=== PATIENT | male | born 1990 | race Caucasian/White ===

== ENCOUNTER 2016-12-09 22:15 | Inpatient (IN) | payer BC, OTHER ==
--- NOTE | 2016-12-09 23:07 | ED ---
Seble Martell Thomas, scribed for Scottie Conrad MD on 12/09/16 at 2254 . Psychiatric Complaint - HPI Summary HPI Summary: The pt is a 26 y/o M presenting to the ED c/o racing thoughts that began a week ago. He sees someone for this and other unspecified mental health issues. He presented to the ED after his mother requested that he do so due to his racing thoughts. - History Of Current Complaint Chief Complaint: EDMentalHealth Time Seen by Provider: 12/09/16 22:51 Hx Obtained From: Patient Onset/Duration: Lasting Weeks - 1 week, Still Present - Allergies/Home Medications Allergies/Adverse Reactions: Allergies Allergy/AdvReac Type Severity Reaction Status Date / Time No Known Allergies Allergy Verified 12/10/16 16:21 Home Medications: Home Medications Lorazepam [Ativan 1 MG TAB] 1 mg PO BID 12/10/16 [History Confirmed 12/10/16] PMH/Surg Hx/FS Hx/Imm Hx Previously Healthy: No Respiratory History: Denies: Hx Chronic Obstructive Pulmonary Disease (COPD) Opthamlomology History: Denies: Hx Legally Blind Infectious Disease History: No Infectious Disease History: Denies: Traveled Outside the [place] in Last 30 Days - Family History Known Family History: Positive: Other - FHx not obtained because pt was sleeping at time of re-evaluation - Social History Occupation: Student - formerly a student Alcohol Use: Occasionally Review of Systems Constitutional: Negative Negative: Fever Eyes: Negative ENT: Negative Cardiovascular: Negative Respiratory: Negative Gastrointestinal: Negative Genitourinary: Negative Musculoskeletal: Negative Skin: Negative Neurological: Negative Psychological: Other - POS: racing thoughts All Other Systems Reviewed And Are Negative: Yes Physical Exam Triage Information Reviewed: Yes Vital Signs On Initial Exam: Initial Vitals Temp Pulse Resp BP Pulse Ox 98.5 F 94 16 130/87 95 12/09/16 22:35 12/09/16 22:35 12/09/16 22:35 12/09/16 22:35 12/09/16 22:35 Vital Signs Reviewed: Yes Appearance: Positive: Well-Appearing, No Pain Distress Skin: Positive: Warm Head/Face: Positive: Normal Head/Face Inspection Eyes: Positive: FAIZA ENT: Positive: Hearing grossly normal Neck: Positive: Supple Respiratory/Lung Sounds: Positive: Clear to Auscultation, Breath Sounds Present Cardiovascular: Positive: RRR Abdomen Description: Positive: Nontender, Soft Bowel Sounds: Positive: Present Musculoskeletal: Positive: Strength/ROM Intact Neurological: Positive: Alert, Oriented to Person Place, Time Psychiatric: Positive: Affect/Mood Appropriate, Anxious Diagnostics - Vital Signs Vital Signs Temp Pulse Resp BP Pulse Ox 12/09/16 22:35 98.5 F 94 16 130/87 95 - Laboratory Result Diagrams: 12/09/16 23:51 12/09/16 23:51 Lab Statement: Any lab studies that have been ordered have been reviewed, and results considered in the medical decision making process. Course/Dx - Differential Dx/Clinical Impression Provider Diagnosis: Delusions, Psychosis - Physician Notifications Instructed by Provider To: Admit As Inpatient Discharge - Discharge Plan Condition: Fair Disposition: ADMITTED TO [facility] The documentation as recorded by the Seble munoz Thomas accurately reflects the service I personally performed and the decisions made by , Scottie Conrad MD.
[2016-12-09 23:18] LABS: Urine Bilirubin Negative (Negative); Urine Glucose Negative (Negative); Urine Nitrite Negative (Negative)
[2016-12-09 23:28] LABS: Benzodiazepine Urine Screen None Detected (None Detect)
[2016-12-10 00:05] LABS: Hematocrit 45 % (42-52); Hemoglobin 15.7 g/dl (14.0-18.0); Mean Corpuscular HGB Conc 35 g/dl (31-36); Mean Corpuscular Hemoglobin 31 pg (27-31); Mean Corpuscular Volume 88 fL (80-94); Mean Platelet Volume 8 um3 (7.4-10.4); Red Cell Distribution Width 13 % (10.5-15); White Blood Count 6.8 10^3/ul (3.5-10.8)
[2016-12-10 00:20] LABS: ALT 24 U/L (7-52); AST 23 U/L (13-39); Albumin 4.5 g/dL (3.2-5.2); Alkaline Phosphatase 48 U/L (34-104); Anion Gap 9 mmol/L (2-11); BUN/Creatinine Ratio 17.1 (8-20); Blood Urea Nitrogen 19 mg/dL (6-24); CO2 Carbon Dioxide 24 mmol/L (22-32); Calcium 9.6 mg/dL (8.6-10.3); Chloride 103 mmol/L (101-111); EGFR African American 102.2 (>60); EGFR Non-African American 79.5 (>60); Globulin 2.9 g/dL (2-4); Glucose 83 mg/dL (70-100); Potassium 3.6 mmol/L (3.5-5.0); Sodium 136 mmol/L (133-145); Total Protein 7.4 g/dL (6.4-8.9)
[2016-12-10 00:28] LABS: Acetaminophen < 15 mcg/mL; Alcohol 17 mg/dL (<10); Salicylate < 2.50 mg/dL (<30)
[2016-12-10 00:39] LABS: TSH (Thyroid Stimulating Horm) 0.91 mcIU/mL (0.34-5.60)
[2016-12-10] MEDS ORDERED: Acetaminophen TAB* 325 MG PO PRN (10:59)
[2016-12-10] MEDS ORDERED: Al Hydrox/Mg Hydrox/Simet LIQ* 30 ML UDC PO PRN (10:59)
[2016-12-10] MEDS ORDERED: LORazepam TAB(*) 1 MG PO PRN (11:01)
[2016-12-10] MEDS ORDERED: Nicotine GUM* 2 MG PO PRN (13:23)
[2016-12-10] MEDS ORDERED: Nicotine Inhaler* 10 MG AMP INH PRN (13:23)
[2016-12-11] MEDS ORDERED: LORazepam TAB(*) 1 MG PO PRN (11:17)
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
--- NOTE | 2016-12-11 14:45 | RAD ---
Indication: Psychosis. CT of the brain was performed without IV contrast. Ventricular structures are midline. No shift is noted. The extra-axial spaces are unremarkable. There is no evidence of intracranial mass or hemorrhage. No other high or low density lesions are identified. Mastoid air cells and paranasal sinuses are otherwise unremarkable. IMPRESSION: No intracranial mass or hemorrhage is noted.
[2016-12-11] MEDS: clonazePAM TAB(*) 0.5 MG PO PRN (17:41)
[2016-12-11] MEDS: ARIPiprazole TAB* 5 MG PO SCH (20:57)
[2016-12-12 08:57] LABS: HDL Cholesterol 41.7 mg/dL
[2016-12-12 10:26] LABS: Rapid HIV INT CONT QC Line Present; Rapid HIV Kit Lot# F336002
--- NOTE | 2016-12-12 16:27 | PN ---
Subjective - Subjective Service Type: [id number] Hosp care 15 min low complexity Subjective: Patient sleeping on my approach. He reports not feeling up to being in the milieu or going to groups just yet. He does report noticeable decrease in anxiety. Patient is med compliant and denies med s/e's. Patient reports good sleep and appetite. Patient is linear on interview, but is not spontaneous in speech. When asked if he still is thinking about the future events he saw in 09/2015 or if he's experienced any other episodes of mohit vu, patient shakes his head, but does not answer. He expresses no delusional thought. He denies SI/HI and AH/VH. Objective - Appearance Appearance: Well Developed/Nourished Dysmorphic Features: Yes Hygiene: Normal Grooming: Well Kept - Behavior Psychomotor Activities: Normal Exhibits Abnormal Movement: Yes - Attitude and Relatedness Attitude and Relatedness: Cooperative Eye Contact: Fair - Speech Quality: Unpressured Latencies: Normal Quantity: Terse - Mood Patient's Decription of Mood: "Okay" - Affect Observed Affect: Non-labile Affect Consistent with: Dysphoria - Thought Process Patient's Thought Process: Coherent Thought Content: No Passive Wish, No Suicidal Planning, No Homicidal Ideation, No Paranoid Ideation - Sensorium Experiencing Hallucinations: No, Sensorium is Clear Type of Hallucinations: Visual: No, Auditory: No, Command: No - Level of Consciousness Level of Consciousness: Lethargic Orientation: Yes Intact, Yes Orientated to Time, Yes Orientated to Place, Yes Orientated to Person - Impulse Control Impulse Control: Poor - Insight and Judgement Insight and Judgement: Poor - Group Participation Particating in Group Activities: No - Medication Management Medication Management Adherence: Yes Assessment - Assessment Merits Inpatient Hospitalization: For Immediate Safety, For Stabilization Inpatient DSM-IV Dx: 1. Unspecified psychotic disorder (1st break). 2. R/O Bipolar 2 d/o, MRE mixed with PFs. 3. R/O Delusional d/o. 4. R/O Temporal lobe epilepsy Plan - Plan Treatment Plan: Name: MITCHEL CERON Birthdate: 1990 [id number] PLAN: ------ 1. Continue admission to [facility] for safety and symptom mx. 2. D/C Ativan 3. Patient agrees to start Klonopin 0.5mg po BID for anxiety. 4. Continue Abilify 5mg po qhs for mood stabilization/psychosis. 5. MMPI evaluated. 6. First break work-up: CT head w/o contrast - wnl. ESR-wnl. HIV-neg. RPR and EEG-PENDING. 7. Continue compiling collateral information from family, PCP, and [facility] in [place] on [address] 8. Patient to participate in milieu activities and groups. Continued Medication Management: Start Medication Medications: Current Medications Acetaminophen (Tylenol Tab*) 650 mg PO Q4H PRN PRN Reason: for pain; or Temp >101 F Al Hydrox/Mg Hydrox/Simethicone (Maalox Plus*) 30 ml PO Q4H PRN PRN Reason: INDIGESTION Aripiprazole (Abilify Tab*) 5 mg PO BEDTIME NANCY Last Admin: 12/11/16 20:57 Dose: 5 mg Clonazepam (Klonopin Tab(*)) 0.5 mg PO BID PRN PRN Reason: Anxiety / Agitation / Insomnia Last Admin: 12/11/16 17:41 Dose: 0.5 mg Nicotine (Nicotine Inhaler*) 10 mg INH Q2H PRN PRN Reason: CRAVING Nicotine Polacrilex (Nicotine Gum*) 2 mg PO Q2H PRN PRN Reason: CRAVING - Discharge Plan Discharge Plan: Outpatient Follow Up Outpatient Program: Private Clinician(s)
--- NOTE | 2016-12-12 16:54 | CONS ---
PSYCHOLOGICAL REPORT: DATE OF CONSULT: 12/12/16 REASON FOR REFERRAL: Carl was referred for psychological testing with concerns regarding psychotic thought processes, perhaps consistent with bipolar condition. Concerns also revolve around possible depressive affect as well as anxiety. TEST ADMINISTERED: Carl completed the [place] Multiphasic Personality Inventory-2 (MMPI-2). He was given feedback in individual conversation regarding results. 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 Apparently, Carl did grow up with some members of the band, but the mother does not believe that he had written songs for them. Carl impressed as responding to some internal stimuli in discussion of test results. He seemed to be somewhat defended in attempts to interview, describing maintaining good sleep hygiene, but that he often uses alcohol and at times a benzodiazepine to induce sleep. When told that his depression scale was not elevated on testing, he turned to knock on wood and then seemed to be responding to some sort of internal stimuli that he was unwilling to discuss. Carl presented with good hygiene and fair eye contact. He did not initiate any clinical discussion or pursue questions regarding test results, and expressed relief when this senior technical writer disengaged with him. He has to date been rather reclusive to his room, not engaging in group programing so far. IMPRESSIONS AND RECOMMENDATIONS: Carl provides a valid protocol on this administration of the MMPI-2 and elevates both the psychopathic deviate and hypomania scales to a T-score of approximately 70. His test results impressed as being consistent with bipolar I disorder, which seems to be consistent with at least his mother's description of rather bizarre behaviors and believes of late. This appears to be a first break psychotic experience as Carl does not appear to have any prior inpatient treatment or mental health supports. Apparently, there is some history of Carl experiencing anxiety, but he does not discuss that presently. Concerns are that his account of recent history is not altogether forthcoming with likely difficulties with sleep hygiene. Information collected from his mother supports difficulties with sleep and encroaching behaviors which are out of character for him and increasingly bizarre. Diagnostic impression supports psychosis with likely bipolar I disorder either being present or in a prodromal phase. [id number]/[facility] #: [id number] BESSY
[2016-12-12] MEDS: Cetirizine* 10 MG TAB PO SCH (19:28)
[2016-12-12] MEDS: Fluticasone NASAL SPRAY 50MCG* 16 gm SPRAY BTL BOTH NARES SCH (19:28)
[2016-12-12] MEDS: ARIPiprazole TAB* 5 MG PO SCH (20:22)
--- NOTE | 2016-12-13 06:33 | EEG ---
ELECTROENCEPHALOGRAPHY: DATE OF STUDY: DATE OF DICTATION: 12/12/16 - ROOM #214 PATIENT OF: Dr. Moore. CLINICAL PROBLEM: This is a 26-year-old man being evaluated for a psychotic break to evaluate for seizures. MEDICATIONS: Include: 1. Abilify. 2. Maalox. 3. Klonopin. 4. Nicotine gum. 5. Ativan. 6. Marijuana. REPORT: With the patient awake, background cerebral activity consists of moderate amplitude posterior dominant 8 Hz rhythm, which attenuates with eye opening and reappears with eye closure. At times, there is muscle movement artifact. No clear cut epileptiform potentials, focal abnormalities, major asymmetries of background is noted. The patient never falls asleep. CLINICAL IMPRESSION: This awake EEG is within normal limits. [id number]/[facility] #: [id number] MTDD
[2016-12-13] MEDS: Cetirizine* 10 MG TAB PO SCH (09:13)
[2016-12-13] MEDS: Fluticasone NASAL SPRAY 50MCG* 16 gm SPRAY BTL BOTH NARES SCH (09:13)
[2016-12-13 11:41] LABS: Syphilis Index < 0.1 Index
--- NOTE | 2016-12-13 11:43 | PN ---
MHU: Group Therapy Note - Service Type Service Type: [id number] Group Psychotherapy - Cognitive Behavioral Group Psychotherapy Note: Carl was attentive to discussion but did not spontaneously offer comment. His affect varied appropriately with discussion.
--- NOTE | 2016-12-13 12:05 | PN ---
Subjective - Subjective Service Type: [id number] Hosp care 15 min low complexity Subjective: Patient in the milieu on my approach, sitting alone. He did attend group this morning. Patient requests discharge at initiation of interview. Patient reports significant discomfort with being here. 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 Patient confronted with question to consider the validity of that statement. Patient then encouraged to consider if this is, in his opinion, based in reality maybe other thoughts that he feels are based in reality may also be far fetched. Patient reports he will stay the weekend. He is amenable to increase of Abilify dose. He denies SI/HI and AH/VH. He does report ongoing experiences of mohit vu which he feels he first saw in 09/2015. Patient informed of lab results including nml CT of head and nml EEG. Objective - Appearance Appearance: Thin Framed Dysmorphic Features: No Hygiene: Normal Grooming: Fairly Well Kept - Behavior Psychomotor Activities: Abnormal-Decreased Exhibits Abnormal Movement: Yes - Attitude and Relatedness Attitude and Relatedness: Cooperative Eye Contact: Poor - Speech Quality: Unpressured Latencies: Normal Quantity: Appropriate - Mood Patient's Decription of Mood: "Anxious" - Affect Observed Affect: Depressed Affect Consistent with: Dysphoria - Thought Process Patient's Thought Process: Coherent Thought Content: No Passive Wish, No Suicidal Planning, No Homicidal Ideation, No Paranoid Ideation - Sensorium Experiencing Hallucinations: No, Sensorium is Clear Type of Hallucinations: Visual: No, Auditory: No, Command: No - Level of Consciousness Level of Consciousness: Alert Orientation: Yes Intact, Yes Orientated to Time, Yes Orientated to Place, Yes Orientated to Person - Impulse Control Impulse Control: Intact - Insight and Judgement Insight and Judgement: Poor - Group Participation Particating in Group Activities: No - Medication Management Medication Management Adherence: Yes Assessment - Assessment Merits Inpatient Hospitalization: For Stabilization Inpatient DSM-IV Dx: 1. Unspecified psychotic disorder (1st break). 2. R/O Bipolar 2 d/o, MRE mixed with PFs. 3. R/O Delusional d/o. Plan - Plan Treatment Plan: Name: MITCHEL CERON Birthdate: 1990 [id number] PLAN: ------ 1. Continue admission to [facility] for safety and symptom mx. 2. D/C Ativan 3. Continue Klonopin 0.5mg po BID for anxiety. 4. Increase Abilify from 5mg to 10mg po qhs for mood stabilization/psychosis. 5. MMPI evaluated. 6. First break work-up: CT head w/o contrast - wnl. ESR-wnl. HIV-neg. RPR - neg. EEG - wnl. 7. Continue compiling collateral information from family, PCP, and [facility] in [place] on [address] 8. Patient to participate in milieu activities and groups. Medications: Current Medications Acetaminophen (Tylenol Tab*) 650 mg PO Q4H PRN PRN Reason: for pain; or Temp >101 F Al Hydrox/Mg Hydrox/Simethicone (Maalox Plus*) 30 ml PO Q4H PRN PRN Reason: INDIGESTION Aripiprazole (Abilify Tab*) 10 mg PO BEDTIME [facility] Cetirizine HCl (Zyrtec*) 10 mg PO DAILY [facility] Last Admin: 12/13/16 09:13 Dose: Not Given Clonazepam (Klonopin Tab(*)) 0.5 mg PO BID PRN PRN Reason: Anxiety / Agitation / Insomnia Last Admin: 12/11/16 17:41 Dose: 0.5 mg Fluticasone Propionate (Flonase Nasal [place] 50mcg*) 2 spray BOTH NARES DAILY [facility] Last Admin: 12/13/16 09:13 Dose: Not Given Nicotine (Nicotine Inhaler*) 10 mg INH Q2H PRN PRN Reason: CRAVING Nicotine Polacrilex (Nicotine Gum*) 2 mg PO Q2H PRN PRN Reason: CRAVING - Discharge Plan Discharge Plan: Outpatient Follow Up Outpatient Program: Counseling/Psych Services at [place]
[2016-12-13] MEDS: clonazePAM TAB(*) 0.5 MG PO PRN (12:47)
[2016-12-13] MEDS: ARIPiprazole TAB* 5 MG PO SCH (20:43)
[2016-12-14] MEDS: Cetirizine* 10 MG TAB PO SCH (09:49)
[2016-12-14] MEDS: Fluticasone NASAL SPRAY 50MCG* 16 gm SPRAY BTL BOTH NARES SCH (09:49)
[2016-12-14] MEDS: clonazePAM TAB(*) 0.5 MG PO PRN ×2 (13:09→22:02)
[2016-12-14] MEDS: ARIPiprazole TAB* 5 MG PO SCH (20:14)
[2016-12-15] MEDS: Cetirizine* 10 MG TAB PO SCH (09:01)
[2016-12-15] MEDS: Fluticasone NASAL SPRAY 50MCG* 16 gm SPRAY BTL BOTH NARES SCH (09:01)
[2016-12-15] MEDS: clonazePAM TAB(*) 0.5 MG PO PRN ×2 (11:02→18:04)
--- NOTE | 2016-12-15 12:02 | PN ---
Subjective - Subjective Service Type: 96327 Hosp care 15 min low complexity Subjective: The patient denies SI or HI. He appears to be tolerating his medication well and complains only of nasal congestion, requesting Mucinex. Staff reports that he has been cooperative with routines and milieu activities. Patient seems somewhat guarded and paranoid. Objective - Appearance Appearance: Well Developed/Nourished Dysmorphic Features: No Hygiene: Normal Grooming: Well Kept - Behavior Psychomotor Activities: Normal Exhibits Abnormal Movement: No - Attitude and Relatedness Attitude and Relatedness: Guarded Eye Contact: Fair - Speech Quality: Unpressured Latencies: Normal Quantity: Terse - Mood Patient's Decription of Mood: "Okay" - Affect Observed Affect: Tense Affect Consistent with: Euthymia - Thought Process Patient's Thought Process: Coherent Thought Content: Yes Paranoid Ideation, No Passive Wish, No Suicidal Planning, No Homicidal Ideation - Sensorium Experiencing Hallucinations: No, Sensorium is Clear Type of Hallucinations: Visual: No, Auditory: No, Command: No - Level of Consciousness Level of Consciousness: Alert Orientation: Yes Intact, Yes Orientated to Time, Yes Orientated to Place, Yes Orientated to Person - Impulse Control Impulse Control: Tenuous - Insight and Judgement Insight and Judgement: Poor - Group Participation Particating in Group Activities: Yes - Medication Management Medication Management Adherence: Yes Assessment - Assessment Merits Inpatient Hospitalization: For Immediate Safety, For Stabilization Inpatient DSM-IV Dx: 1. Unspecified psychotic disorder (1st break). 2. R/O Bipolar 2 d/o, MRE mixed with PFs. 3. R/O Delusional d/o. Clinical Impression: 26 y.o. single, white male with no prior documented history of psychiatric disorder arrived brought in by his mother for increasing paranoid and bizarre behavior. Plan - Plan Treatment Plan: Name: MITCHEL CERON Birthdate: 1990 [id number] Patient taking aripiprazole as prescribed. Remains paranoid. Mucinex prn for congestion. Continued Medication Management: Start Medication Medications: Current Medications Acetaminophen (Tylenol Tab*) 650 mg PO Q4H PRN PRN Reason: for pain; or Temp >101 F Al Hydrox/Mg Hydrox/Simethicone (Maalox Plus*) 30 ml PO Q4H PRN PRN Reason: INDIGESTION Aripiprazole (Abilify Tab*) 10 mg PO BEDTIME [facility] Last Admin: 12/14/16 20:14 Dose: 10 mg Cetirizine HCl (Zyrtec*) 10 mg PO DAILY [facility] Last Admin: 12/15/16 09:01 Dose: Not Given Clonazepam (Klonopin Tab(*)) 0.5 mg PO BID PRN PRN Reason: Anxiety / Agitation / Insomnia Last Admin: 12/15/16 11:02 Dose: 0.5 mg Fluticasone Propionate (Flonase Nasal [place] 50mcg*) 2 spray BOTH NARES DAILY [facility] Last Admin: 12/15/16 09:01 Dose: Not Given Guaifenesin (Mucinex*) 600 mg PO BID PRN PRN Reason: CONGESTION Nicotine (Nicotine Inhaler*) 10 mg INH Q2H PRN PRN Reason: CRAVING Nicotine Polacrilex (Nicotine Gum*) 2 mg PO Q2H PRN PRN Reason: CRAVING - Discharge Plan Discharge Plan: Inpatient Hospitalization
[2016-12-15] MEDS: guaiFENesin ER TAB 600 MG PO PRN (18:07)
[2016-12-15] MEDS: ARIPiprazole TAB* 5 MG PO SCH (20:03)
[2016-12-16 08:05] VITALS: BP 136/69
[2016-12-16] MEDS: Cetirizine* 10 MG TAB PO SCH (08:54)
[2016-12-16] MEDS: guaiFENesin ER TAB 600 MG PO PRN (08:54)
[2016-12-16] MEDS: Fluticasone NASAL SPRAY 50MCG* 16 gm SPRAY BTL BOTH NARES SCH (08:54)
[2016-12-16] MEDS: clonazePAM TAB(*) 0.5 MG PO PRN (12:59)
--- NOTE | 2016-12-16 13:56 | PN ---
[facility]: Group Therapy Note - Service Type Service Type: [id number] Group Psychotherapy - Cognitive Behavioral Group Therapy ( CBT):Patient attended CBT programming this morning and presented with flat affect that did not vary with discussion. Although responsive to direct prompts to respond to questions, patient did not engage in spontaneous conversation.
--- NOTE | 2016-12-16 15:36 | DS ---
Subjective - Subjective Service Types: [id number] Hosp DC Day Mgmt simple under 30 min Treatment Course & Assessment Inpatient DSM-IV Dx: 1. Unspecified psychotic disorder (1st break). 2. R/O Bipolar 2 d/o, MRE mixed with PFs. 3. R/O Delusional d/o. Discharge Planning - Discharge Planning Medications: Current Medications Acetaminophen (Tylenol Tab*) 650 mg PO Q4H PRN PRN Reason: for pain; or Temp >101 F Al Hydrox/Mg Hydrox/Simethicone (Maalox Plus*) 30 ml PO Q4H PRN PRN Reason: INDIGESTION Aripiprazole (Abilify Tab*) 10 mg PO BEDTIME [facility] Last Admin: 12/15/16 20:03 Dose: 10 mg Cetirizine HCl (Zyrtec*) 10 mg PO DAILY [facility] Last Admin: 12/16/16 08:54 Dose: Not Given Clonazepam (Klonopin Tab(*)) 0.5 mg PO BID PRN PRN Reason: Anxiety / Agitation / Insomnia Last Admin: 12/16/16 12:59 Dose: 0.5 mg Fluticasone Propionate (Flonase Nasal Dora 50mcg*) 2 spray BOTH NARES DAILY [facility] Last Admin: 12/16/16 08:54 Dose: Not Given Guaifenesin (Mucinex*) 600 mg PO BID PRN PRN Reason: CONGESTION Last Admin: 12/16/16 08:54 Dose: 600 mg Nicotine (Nicotine Inhaler*) 10 mg INH Q2H PRN PRN Reason: CRAVING Nicotine Polacrilex (Nicotine Gum*) 2 mg PO Q2H PRN PRN Reason: CRAVING Discharge Planning: Prescriptions provided for discharge [] Yes [] No Follow up care details as per social work arrangements. Patient response to discharge plan: [] eager for discharge [] agreeable with discharge plan [] ambivalent about discharge [] disagrees with discharge today
== END 2016-12-16 17:42 | disposition home or self-care (01) | DRG 751 ==
LOC: ED 22:15 → BSU 12-10 10:59
PROVIDERS: ADMIT Psychiatry & Neurology Psychiatry; ATTEND Psychiatry & Neurology Psychiatry
DX: F29 Unspecified psychosis not due to a substance or known physiological condition (principal); R45.851 Suicidal ideations; Z79.899 Other long term (current) drug therapy; Z81.8 Family history of other mental and behavioral disorders
CPT/HCPCS: 36415; 70450; 80053; 80061; 80307; 80320; 80329; 81003; 82607; 83036; 84443; 85014; 85025; 85652; 86592; 86703; 90853; 95816; 99222; 99231; 99238; A9270-GY; G0480